=== PATIENT | male | born 1985 | race Hispanic/Latino ===

== ENCOUNTER 2017-11-11 21:51 | Inpatient (IN) | payer MEDICAID ==
--- NOTE | 2017-11-11 22:17 | C.PDOC ---
History Of Present Illness Pt was sent in transfer from [facility] where he was medically cleared for admission to [facility]. Pt was accepted in transfer by dr farias . Pt has no complaints at the present time Time Seen by Provider: 11/11/17 22:16 Chief Complaint (Nursing): Medical Clearance History Per: Patient History/Exam Limitations: no limitations Onset/Duration Of Symptoms: Days Current Symptoms Are (Timing): Still Present Severity: Moderate Pain Scale Rating Of: 4 Reports Recently: Seen In ED, Treated By A Physician Recent travel outside of the [place] States: No Additional History Per: Patient Past Medical History Reviewed: Historical Data, Nursing Documentation, Vital Signs Vital Signs: Last Vital Signs Temp 97.6 F 11/11/17 22:01 Pulse 54 L 11/11/17 22:01 Resp 20 11/11/17 22:01 BP 108/71 11/11/17 22:01 Pulse Ox 96 11/11/17 22:17 - Medical History PMH: Anxiety, Bipolar Disorder, Depression Family History: States: No Known Family Hx - Social History Hx Alcohol Use: No Hx Substance Use: Yes - Immunization History Hx Tetanus Toxoid Vaccination: No Hx Influenza Vaccination: No Hx Pneumococcal Vaccination: No Review Of Systems Constitutional: Negative for: Fever, Chills Cardiovascular: Negative for: Chest Pain Respiratory: Negative for: Shortness of Breath Gastrointestinal: Negative for: Nausea Musculoskeletal: Negative for: Back Pain Skin: Negative for: Rash Neurological: Negative for: Weakness Psych: Positive for: Depression Physical Exam - Physical Exam Appears: Non-toxic Skin: Warm, Dry Neck: Supple Chest: Symmetrical Cardiovascular: Rhythm Regular Respiratory: No Rales, No Rhonchi, No Wheezing Gastrointestinal/Abdominal: Soft, No Tenderness Extremity: Normal ROM Extremity: Bilateral: Atraumatic Pulses: Left Dorsalis Pedis: Normal, Right Dorsalis Pedis: Normal Neurological/Psych: Oriented x3 Gait: Steady ED Course And Treatment O2 Sat by Pulse Oximetry: 96 Pulse Ox Interpretation: Normal Disposition Discussed With : Susanna Farias Comment: accepted the pt on his service and took over the care at 10:20 PM Doctor Will See Patient In The: Hospital Counseled Patient/Family Regarding: Studies Performed, Diagnosis - Disposition Disposition: HOSPITALIZED Disposition Time: 22:17 Condition: FAIR Forms: [employer] ([place]) - Clinical Impression Clinical Impression: Depression, Polysubstance abuse
--- NOTE | 2017-11-11 23:50 | PCM.BM ---
<Solitario Sifuentes - Last Filed: 11/11/17 23:47> Treatment Plan Problems - Problems identified on initial assessmt DEPRESSION Date Initiated: 11/11/17 Time Initiated: 22:55 Assessment reference: NA Status: Active Substance Abuse Date Initiated: 11/11/17 Time Initiated: 22:55 Assessment reference: NA Status: Active Treatment assets and liabiliti Patient Assests: cooperative, self-reliant, ADL independent, negotiates basic needs, cognitively intact Patient Liabilities: live alone, financial problems, poor support system, relationship conflicts, substance abuse, medical problems - Milieu Protocol Maintain good personal hygiene: daily Encourage regular showers, daily Remind patient to perform daily oral care, daily Assist patient to perform ADL's Maintain personal safety: every shift Educate patient to report safety concerns to staff, every shift Monitor environment for contraband/sharps Medication safety: Monitor for expected outcome, potential side effects: every shift, Assess barriers to learning: every shift, Assess readiness for medication education: every shift <Gila Vallecillo - Last Filed: 11/13/17 11:17> Family Contact Family involvement: Famliy/SO not involved - Goals for Treatment Patient goals for treatment: "I want to go back to my IOP program at [facility]." Discharge/Continuing Care - Education Needs Education Needs: Patient Medication, Patient Coping Skills - Discharge Discharge Criteria: Tolerates medication w/o severe side effects, No longer exhibiting s/s of withdrawal, Reduction of target symptoms Discharge to:: Home - Treatment Team Participation Discussed with Family/SO: No Was Patient/Family/SO present at Treatment Team Meeting: Yes <Susanna Farias - Last Filed: 11/13/17 11:34> - Diagnosis (1) Bipolar disorder, current episode depressed, severe, without psychotic features Status: Acute Interventions: 11/13/17 11:33 * Assess/adjust medications daily and /or as needed * See patient on an individual basis 7x/week to assess symptoms of depression * Monitor for side effects & effectiveness of medications * (2) Sedative, hypnotic or anxiolytic use disorder, severe, dependence Status: Acute Interventions: 11/13/17 11:33 * Assess 7x/week regarding severity of withdrawal * Educate regarding risks, benefits, side effects and alternatives of medications * Use Motivational Interviewing for abstinence * Use CBT for relapse prevention * Medication management for withdrawal symptoms * Encourage medication assisted treatment *
[2017-11-12] MEDS: Buprenorphine Hydrochloride 8 mg SL SCH ×2 (10:09→17:10)
--- NOTE | 2017-11-12 10:51 | PCM.PSYCH ---
Initial Psychiatric Evaluation - Initial Psychiatric Evaluation Type of Admission: Voluntary Legal Status: Capacity Chief Complaint (in patient's own words): I was feeling depressed and suicidal.' History of Present Illness and Precipitating Events: This is a 32 y.o. CM, who was transferred from [facility] with Dx of Depression suicidal ideation. Pt reports a history of mood swings, benzodiazepine, cannabis and heroin abuse. He has h/o multiple inpatient psychiatric hospitalizations. He was last discharged from [facility]. As per the patient, he was discharged with klonopin and suboxone. He started abusing Suboxone and Klonopin 6mg daily and smoking MJ daily. As per him he is clean from heroin for more than a year now. He reports that he was trying to taper down his dose on those medications with no success. Patient reports depressed mood, feelings of hopelessness and helplessness, poor sleep and poor appetite. He also reports racing thoughts and irritability and agitation. Patient however denies any homicidal ideations and denies any auditory/visual hallucinations or any paranoia. PMH None reported Current Medications: Active Medications Generic Name Dose Route Start Last Admin Trade Name Freq PRN Reason Stop Dose Admin Buprenorphine HCl 8 mg 11/12/17 10:00 11/12/17 10:09 Subutex SL Not Given BID SUNNY Chlordiazepoxide 25 mg 11/11/17 23:02 11/12/17 08:53 Librium PO 25 mg Q4H PRN Administration Alcohol Withdrawal Chlordiazepoxide 25 mg 11/12/17 00:00 11/12/17 06:10 Librium PO 11/16/17 23:59 25 mg Q6H SUNNY Administration Taper Hydroxyzine HCl 25 mg 11/11/17 22:58 11/11/17 23:26 Atarax PO 25 mg Q4H PRN Administration Anxiety Ibuprofen 600 mg 11/11/17 22:58 Motrin Tab PO Q6H PRN Pain, moderate (4-7) Nicotine 1 patch 11/12/17 10:00 11/12/17 10:08 Nicoderm Cq TD Not Given DAILY SUNNY Pneumococcal Polyvalent Vaccine 0.5 ml 11/14/17 10:00 Pneumovax 23 Vaccine IM 11/14/17 10:01 .ONCE ONE Trazodone HCl 100 mg 11/11/17 22:58 Desyrel PO HS PRN Insomnia Past Psychiatric History - Past Psychiatric History Previous Treatment History: Inpatient Pertinent Medical Hx (Current Medical&Sleep Prob, Allergies): Allergies Allergy/AdvReac Type Severity Reaction Status Date / Time No Known Allergies Allergy Unverified 11/11/17 21:59 Buprenorphine HCl/Naloxone HCl [Suboxone 8 mg-2 mg Sl Film] 1 each SL BID Clonazepam [Klonopin] 2 mg PO TID 11/11/17 Review of Systems - Review of Systems All systems: reviewed and no additional remarkable complaints except - Psychiatric Psychiatric: Anxiety, Irritability, Suicidal Ideation Mental Status Examination - Personal Presentation Personal Presentation: Looks stated age - Affect Affect: Broad - Motor Activity Motor Activity: Psychomotor Agitation - Reliability in Providing Information Reliability in Providing Information: Fair - Speech Speech: Organized - Mood Mood: Depressed, Anxious - Formal Thought Process Formal Thought Process: Flight of ideas, Circumstantial - Obsessions/Compulsions Obsessions: No Compulsions: No - Cognitive Functions Orientation: Person, Place, Situation, Time Sensorium: Alert Attention/Concentration: Attentive Abstract Thinking: [place] Estimate of Intelligence: Below average Judgement: Imparied, as evidence by: Poor judgement, Imparied, as evidence by: Lack of insight into illness - Risk Risk: Suicidal, Withdrawal, Diminished functioning - Limitations Limitations: Living alone DSM 5 DX - DSM 5 DSM 5 Diagnosis: Bipolar depressed severe without psychotic features Sedative hypnotic use disorder severe Cannabis use disorder moderate Opioid use disorder severe on agonist therapy - Recommended/Plan of Treatment Treatment Recommendations and Plan of Treatment: Bipolar depressed severe without psychotic features Sedative hypnotic use disorder severe Sedative hypnotic withdrawal Cannabis use disorder moderate CBT Psychoeducation Supportive therapy, group therapy, individual therapy Neurontin 300 mg by mouth 3 times a day Trazodone 50 mg by mouth daily at bedtime Seroquel 100 mg PO QHS Monitor signs and symptoms Use [place] for abstinence Sedative hypnotic use disorder severe CBT Psychoeducation Supportive therapy, individual therapy Use [place] for abstinence Sedative hypnotic withdrawal CBT Psychoeducation Supportive therapy, individual therapy Clonidine when necessary Start librium taper Start prn meds Opioid use disorder severe on agonist therapy Subutex taper - Smoking Cessation Smoking Cessation Initiated: No
[2017-11-13 08:39] LABS: BASO % 0.9 % (0.0-2.0); EOS # 0.6 K/uL (0.0-0.7); EOS % 11.9 % (0.0-4.0); LYMPH # 2.1 K/uL (1.0-4.3); LYMPH % 43.9 % (20.0-40.0); MEAN CELL VOLUME 95.4 fL (80.0-94.0); MEAN CORPUSCULAR HEMOGLOBIN 33.1 pg (27.0-31.0); MEAN CORPUSCULAR HGB CONC 34.7 g/dL (33.0-37.0); MEAN PLATELET VOLUME 7.8 fL (7.2-11.7); MONO # 0.4 K/uL (0.0-0.8); MONO % 7.9 % (0.0-10.0); NEUT # 1.7 K/uL (1.8-7.0); NEUT % 35.4 % (50.0-75.0); NRBC % 0.1 % (0.0-2.0); RBC 4.53 Mil/uL (4.40-5.90); RED CELL DISTRIBUTION WIDTH 11.9 % (11.5-14.5); WHITE BLOOD COUNT 4.8 K/uL (4.8-10.8)
[2017-11-13 08:55] LABS: ALB/GLOB RATIO 1.4 (1.0-2.1); ALBUMIN 4.3 g/dL (3.5-5.0); ALT/SGPT 116 U/L (21-72); AST/SGOT 62 U/L (17-59); BILIRUBIN,DIRECT 0.4 mg/dL (0.0-0.4); BLOOD UREA NITROGEN 14 mg/dL (9-20); CALCIUM 8.9 mg/dl (8.6-10.4); GFR AFRICAN-AMERICAN > 60; GFR NON-AFRICAN AMERICAN > 60
[2017-11-13] MEDS: Buprenorphine Hydrochloride 8 mg SL SCH (10:18)
--- NOTE | 2017-11-13 23:27 | PCM.PYCHPN ---
Psychiatric Progress Note - Psychiatric Progress Note Patient seen today, length of contact: 15 min Patient Chief Complaint: I was feeling depressed and irritable.'.' Problems Identified/Issues Discussed: Patient seen and evaluated, chart reviewed and discussed with the nurse. Patient remained irritable and agitated. He still reports racing of thoughts and poor sleep. He continued to pace back and forth in the hallways. He at times reports depressed mood. However, He is taking medication and denies any side effects Supportive therapy and psychoeducation were given. Medication Change: Yes (librium taper, subutex taper) Medical Record Reviewed: Yes Mental Status Examination - Cognitive Function Orientation: Person, Place, Situation, Time Memory: Intact Attention: WNL Concentration: Poor Association: WNL Fund of Knowledge: Poor - Mood Mood: Depressed, Anxious - Affect Affect: Broad - Speech Speech: Pressured - Formal Thought Process Formal Thought Process: Flight of ideas, Circumstantial - Suicidal Ideation Suicidal Ideation: No - Homicidal Ideation Homicidal Ideation: No Goal/Treatment Plan - Goal/Treatment Plan Need for Continued Stay: Severe depression anxiety, Severe functional impairment Progress Toward Problem(s) and Goals/Treatment Plan: Bipolar depressed severe without psychotic features Sedative hypnotic use disorder severe Sedative hypnotic withdrawal Cannabis use disorder moderate CBT Psychoeducation Supportive therapy, group therapy, individual therapy Neurontin 300 mg by mouth 3 times a day Trazodone 50 mg by mouth daily at bedtime Seroquel 100 mg PO QHS Monitor signs and symptoms Use [place] for abstinence Sedative hypnotic use disorder severe CBT Psychoeducation Supportive therapy, individual therapy Use [place] for abstinence Sedative hypnotic withdrawal CBT Psychoeducation Supportive therapy, individual therapy Clonidine when necessary Start librium taper Start prn meds Opioid use disorder severe on agonist therapy Subutex taper - Smoking Cessation Smoking Cessation Initiated: No
[2017-11-14 06:30] VITALS: O2SAT 98
[2017-11-14] MEDS ORDERED: Buprenorphine Hydrochloride 2 mg SL PRN (10:00)
[2017-11-14] MEDS ORDERED: Pneumococcal 23-Valent Vaccine IM ONE (10:00)
--- NOTE | 2017-11-14 17:15 | PCM.PYCHPN ---
Psychiatric Progress Note - Psychiatric Progress Note Patient seen today, length of contact: 15 min Patient Chief Complaint: I'm okay. Problems Identified/Issues Discussed: Patient seen, chart reviewed, case discussed with the staff. Issues related to illness and treatment were discussed with the patient and staff. Reported compliant with treatment with no adverse affects. Tolerating treatment very well. Patient reported feeling better. Staff reported that in the morning patient was agitated and irritable. When necessary medication was given and after that patient became calm. Patient was calm and cooperative at the time of evaluation. Patient is improving with treatment but needs more time. Aftercare discussed with the patient. At the time of evaluation, patient was awake alert oriented 3, no delusions, no auditory visual hallucinations, no suicidal ideations or homicidal ideations. Medical Problems: Hepatitis C Diagnostic Results: Reviewed DSM 5 Symptoms Update: Improving with treatment Medication Change: No Medical Record Reviewed: Yes Mental Status Examination - Cognitive Function Orientation: Person, Place, Situation, Time Memory: Intact Attention: WNL Concentration: WNL Association: WNL Fund of Knowledge: [facility] Decription of patient's judgement and insights: Fair - Mood Mood: Anxious - Affect Affect: Other (Appropriate) - Speech Speech: Pressured - Formal Thought Process Formal Thought Process: No Impairment Psychotic Thoughts and Behaviors: None - Suicidal Ideation Suicidal Ideation: No - Homicidal Ideation Homicidal Ideation: No Goal/Treatment Plan - Goal/Treatment Plan Need for Continued Stay: Remain at risks for inpatient hospitalization, Discharge may exacerbated symptoms, Severe functional impairment Progress Toward Problem(s) and Goals/Treatment Plan: Patient education Supportive therapy Continue treatment as before Estimated Date of D/C: 11/17/17 - Smoking Cessation Smoking Cessation Initiated: Yes
[2017-11-15] MEDS: Hydrocortisone 1% Cream (30 GM) TOP SCH ×2 (09:23→17:11)
--- NOTE | 2017-11-15 13:59 | PCM.PYCHPN ---
Psychiatric Progress Note - Psychiatric Progress Note Patient seen today, length of contact: 15 min Patient Chief Complaint: I'm okay. Tl get some shampoo for psoriasis in my head. Problems Identified/Issues Discussed: Patient seen, chart reviewed, case discussed with the staff. Issues related to illness and treatment were discussed with the patient and staff. Reported compliant with treatment with no adverse affects. Tolerating treatment very well. Patient reported feeling better. Patient also requested for [place] for psoriasis in his head. We will start ketoconazole 2% shampoo once daily. Patient agreed. Patient was calm and cooperative at the time of evaluation. Patient is improving with treatment but needs more time. Aftercare discussed with the patient. At the time of evaluation, patient was awake alert oriented 3, no delusions, no auditory visual hallucinations, no suicidal ideations or homicidal ideations. Medical Problems: Hepatitis C Diagnostic Results: Reviewed DSM 5 Symptoms Update: Improving with treatment Medication Change: No Medical Record Reviewed: Yes Mental Status Examination - Cognitive Function Orientation: Person, Place, Situation, Time Memory: Intact Attention: WNL Concentration: WNL Association: WNL Fund of Knowledge: [facility] Decription of patient's judgement and insights: Fair - Mood Mood: Anxious (Much less than before) - Affect Affect: Other (Appropriate) - Speech Speech: Appropriate - Formal Thought Process Formal Thought Process: No Impairment Psychotic Thoughts and Behaviors: None - Suicidal Ideation Suicidal Ideation: No - Homicidal Ideation Homicidal Ideation: No Goal/Treatment Plan - Goal/Treatment Plan Need for Continued Stay: Remain at risks for inpatient hospitalization, Discharge may exacerbated symptoms, Severe functional impairment Progress Toward Problem(s) and Goals/Treatment Plan: Patient education Supportive therapy Continue treatment as before Estimated Date of D/C: 11/17/17 - Smoking Cessation Smoking Cessation Initiated: Yes
[2017-11-16] MEDS: Hydrocortisone 1% Cream (30 GM) TOP SCH ×2 (10:11→17:29)
--- NOTE | 2017-11-16 13:27 | PCM.PYCHPN ---
Psychiatric Progress Note - Psychiatric Progress Note Patient seen today, length of contact: 15 min Patient Chief Complaint: I m feeling little better.' Problems Identified/Issues Discussed: Patient seen and evaluated, chart reviewed and discussed with the nurse. Patient reports some improvement in the irritability and agitation. He reports some improvement in the racing of thoughts and poor sleep. However, He is taking medication and denies any side effects He needs more time for stabilization. Supportive therapy and psychoeducation were given. Medication Change: No Medical Record Reviewed: Yes Mental Status Examination - Cognitive Function Orientation: Person, Place, Situation, Time Memory: Intact Attention: WNL Concentration: WNL Association: WN Fund of Knowledge: WN - Mood Mood: Anxious (Much less than before) - Affect Affect: Other (Appropriate) - Speech Speech: Appropriate - Formal Thought Process Formal Thought Process: No Impairment - Suicidal Ideation Suicidal Ideation: No - Homicidal Ideation Homicidal Ideation: No Goal/Treatment Plan - Goal/Treatment Plan Need for Continued Stay: Remain at risks for inpatient hospitalization, Discharge may exacerbated symptoms, Severe functional impairment Progress Toward Problem(s) and Goals/Treatment Plan: Bipolar depressed severe without psychotic features Sedative hypnotic use disorder severe Sedative hypnotic withdrawal Cannabis use disorder moderate CBT Psychoeducation Supportive therapy, group therapy, individual therapy Neurontin 300 mg by mouth 3 times a day Trazodone 50 mg by mouth daily at bedtime Seroquel 100 mg PO QHS Monitor signs and symptoms Use [place] for abstinence Sedative hypnotic use disorder severe CBT Psychoeducation Supportive therapy, individual therapy Use [place] for abstinence Sedative hypnotic withdrawal CBT Psychoeducation Supportive therapy, individual therapy Clonidine when necessary Start librium taper Start prn meds Opioid use disorder severe on agonist therapy Subutex taper Estimated Date of D/C: 11/17/17 - Smoking Cessation Smoking Cessation Initiated: No
[2017-11-17] MEDS: Hydrocortisone 1% Cream (30 GM) TOP SCH ×2 (10:50→20:20)
--- NOTE | 2017-11-17 11:44 | PCM.PYCHPN ---
Psychiatric Progress Note - Psychiatric Progress Note Patient seen today, length of contact: 15 min Patient Chief Complaint: I am feeling better.' Problems Identified/Issues Discussed: Patient seen and evaluated, chart reviewed and discussed with the nurse. Patient reports some improvement in the irritability and agitation. He reports some improvement in the racing of thoughts and sleep. However, He is taking medication and denies any side effects He needs more time for stabilization. Supportive therapy and psychoeducation were given. Medication Change: No Medical Record Reviewed: Yes Mental Status Examination - Cognitive Function Orientation: Person, Place, Situation, Time Memory: Intact Attention: WNL Concentration: WNL Association: WN Fund of Knowledge: [facility] - Mood Mood: Anxious (Much less than before) - Affect Affect: Other (Appropriate) - Speech Speech: Appropriate - Formal Thought Process Formal Thought Process: No Impairment - Suicidal Ideation Suicidal Ideation: No - Homicidal Ideation Homicidal Ideation: No Goal/Treatment Plan - Goal/Treatment Plan Need for Continued Stay: Remain at risks for inpatient hospitalization, Discharge may exacerbated symptoms, Severe functional impairment Progress Toward Problem(s) and Goals/Treatment Plan: Bipolar depressed severe without psychotic features Sedative hypnotic use disorder severe Sedative hypnotic withdrawal Cannabis use disorder moderate CBT Psychoeducation Supportive therapy, group therapy, individual therapy Neurontin 300 mg by mouth 3 times a day Trazodone 50 mg by mouth daily at bedtime Seroquel 100 mg PO QHS Monitor signs and symptoms Use WI for abstinence Sedative hypnotic use disorder severe CBT Psychoeducation Supportive therapy, individual therapy Use WI for abstinence Sedative hypnotic withdrawal CBT Psychoeducation Supportive therapy, individual therapy Clonidine when necessary librium taper prn meds Opioid use disorder severe on agonist therapy Subutex taper Estimated Date of D/C: 11/19/17 - Smoking Cessation Smoking Cessation Initiated: No
[2017-11-18] MEDS: Hydrocortisone 1% Cream (30 GM) TOP SCH ×2 (10:53→17:52)
--- NOTE | 2017-11-18 13:28 | PCM.PYCHPN ---
Psychiatric Progress Note - Psychiatric Progress Note Patient seen today, length of contact: 15 min Patient Chief Complaint: I m feeling better.' Problems Identified/Issues Discussed: Patient seen and evaluated, chart reviewed and discussed with the nurse. Patient reports some improvement in the irritability and agitation. He reports some improvement in the racing of thoughts and sleep. However, He is taking medication and denies any side effects He needs more time for stabilization. Supportive therapy and psychoeducation were given. Medication Change: No Medical Record Reviewed: Yes Mental Status Examination - Cognitive Function Orientation: Person, Place, Situation, Time Memory: Intact Attention: WNL Concentration: WNL Association: WN Fund of Knowledge: [facility] - Mood Mood: Anxious (Much less than before) - Affect Affect: Other (Appropriate) - Speech Speech: Appropriate - Formal Thought Process Formal Thought Process: No Impairment - Suicidal Ideation Suicidal Ideation: No - Homicidal Ideation Homicidal Ideation: No Goal/Treatment Plan - Goal/Treatment Plan Need for Continued Stay: Remain at risks for inpatient hospitalization, Discharge may exacerbated symptoms, Severe functional impairment Progress Toward Problem(s) and Goals/Treatment Plan: Bipolar depressed severe without psychotic features Sedative hypnotic use disorder severe Sedative hypnotic withdrawal Cannabis use disorder moderate CBT Psychoeducation Supportive therapy, group therapy, individual therapy Neurontin 300 mg by mouth 3 times a day Trazodone 50 mg by mouth daily at bedtime Seroquel 100 mg PO QHS Celexa 10mg Monitor signs and symptoms Use [place] for abstinence Sedative hypnotic use disorder severe CBT Psychoeducation Supportive therapy, individual therapy Use [place] for abstinence Sedative hypnotic withdrawal CBT Psychoeducation Supportive therapy, individual therapy Clonidine when necessary Librium taper prn meds Opioid use disorder severe on agonist therapy Subutex taper Estimated Date of D/C: 11/19/17 - Smoking Cessation Smoking Cessation Initiated: No
[2017-11-19 06:15] VITALS: BP 111/68; PULSE 76; RESP 18; TEMP 97.8
--- NOTE | 2017-11-19 10:50 | PCM.PYCHDC ---
Mental Status Examination - Mental Status Examination Orientation: Person, Place, Situation, Time Memory: Intact Mood: Neutral Affect: Constricted Speech: Soft Attention: WNL Concentration: WNL Association: WNL Fund of Knowledge: WNL Formal Thought Process: No Impairment Description of patient's judgement and insight: good, fair Psychotic Thoughts and Behaviors: denies any AVH Suicidal Ideation: No Current Homicidal Ideation?: No Discharge Summary - Discharge Note Reason for Hospitalization: This is a 32 y.o. CM, who was transferred from [facility] with Dx of Depression suicidal ideation. Pt reports a history of mood swings, benzodiazepine, cannabis and heroin abuse. He has h/o multiple inpatient psychiatric hospitalizations. He was last discharged from [facility]. As per the patient, he was discharged with klonopin and suboxone. He started abusing Suboxone and Klonopin 6mg daily and smoking MJ daily. As per him he is clean from heroin for more than a year now. He reports that he was trying to taper down his dose on those medications with no success. Patient reports depressed mood, feelings of hopelessness and helplessness, poor sleep and poor appetite. He also reports racing thoughts and irritability and agitation. Patient however denies any homicidal ideations and denies any auditory/visual hallucinations or any paranoia. Consultations:: List each consultation separately and include: 1. Reason for request. 2. Findings. 3. Follow-up Summary of Hospital Course include:: 1. Description of specific treatment plan utilized for patients during their course of treatmen. 2. Summarize the time- course for resolution of acute symptoms and/or regressed behaviors. 3. Describe issues identified and worked on during hospitalization. 4. Describe medication utilized. 5. Describe medical problems identified and treated. 6. Reassessment of suicide risk Summary of Hospital Course: This is a 32 y.o. CM, who was transferred from [facility] with Dx of Depression suicidal ideation. Pt reports a history of mood swings, benzodiazepine, cannabis and heroin abuse. He has h/o multiple inpatient psychiatric hospitalizations. He was last discharged from [facility]. As per the patient, he was discharged with klonopin and suboxone. He started abusing Suboxone and Klonopin 6mg daily and smoking MJ daily. As per him he is clean from heroin for more than a year now. He reports that he was trying to taper down his dose on those medications with no success. Patient reports depressed mood, feelings of hopelessness and helplessness, poor sleep and poor appetite. He also reports racing thoughts and irritability and agitation. Patient however denies any homicidal ideations and denies any auditory/visual hallucinations or any paranoia. PMH None reported - Diagnosis (1) Bipolar disorder, current episode depressed, severe, without psychotic features Current Visit: Yes Status: Acute (2) Sedative, hypnotic or anxiolytic use disorder, severe, dependence Current Visit: Yes Status: Acute - Final Diagnosis (DSM 5) Condition upon Discharge: FAIR Disposition: HOME/ ROUTINE Follow-up Treatment Plan: Bipolar depressed severe without psychotic features Sedative hypnotic use disorder severe Sedative hypnotic withdrawal Cannabis use disorder moderate CBT Psychoeducation Supportive therapy, group therapy, individual therapy Neurontin 300 mg by mouth 3 times a day Trazodone 50 mg by mouth daily at bedtime Seroquel 100 mg PO QHS Celexa 10mg Monitor signs and symptoms Use [place] for abstinence Sedative hypnotic use disorder severe CBT Psychoeducation Supportive therapy, individual therapy Use [place] for abstinence Sedative hypnotic withdrawal CBT Psychoeducation Supportive therapy, individual therapy Clonidine when necessary Librium taper prn meds Opioid use disorder severe on agonist therapy Subutex taper Prescriptions/Medication Reconciliation: Citalopram [celeXA] 10 mg PO DAILY #30 tab Gabapentin [Neurontin] 300 mg PO TID #90 cap QUEtiapine [Seroquel] 100 mg PO HS #30 tab
== END 2017-11-19 12:40 | disposition home or self-care (01) | DRG 430 ==
LOC: C.ER 21:51 → C.5E 22:18
PROVIDERS: ADMIT Psychiatry & Neurology Psychiatry; ATTEND Psychiatry & Neurology Psychiatry
DX: F31.4 Bipolar disorder, current episode depressed, severe, without psychotic features (principal); F13.239 Sedative, hypnotic or anxiolytic dependence with withdrawal, unspecified; B19.20 Unspecified viral hepatitis C without hepatic coma; L40.9 Psoriasis, unspecified; F12.10 Cannabis abuse, uncomplicated